=== PATIENT | male | born 1965 | race African-American/Black ===

== ENCOUNTER 2024-05-06 08:40 | Emergency (ER) | payer BC ==
[2024-05-06 08:47] VITALS: TEMP 98.3; BMI 23.0
[2024-05-06] MEDS ORDERED: ACETAMINOPHEN 325 MG TABLET (FP) ONE (09:19)
[2024-05-06] MEDS ORDERED: METHOCARBAMOL 500 MG TABLET ONE (09:19)
[2024-05-06] MEDS ORDERED: LIDOCAINE 5% TOPICAL PATCH ONE (09:19)
[2024-05-06 09:28] LABS: BASO % 0.8 % (0-2.0); EOS % 2.5 % (0-4.5); HEMOGLOBIN 13.1 GM/dL (11.7-16.9); LYMPH % 34.7 % (8-40); MCH 29.6 pg (25.7-33.7); MCHC 32.7 g/dl (32.0-35.9); MEAN CELL VOLUME 90.5 fl (80-96); MEAN PLT VOLUME 9.1 fl (7.5-11.1); MONO % 10.6 % (3.8-10.2); NEUT % 51.4 % (42.8-82.8); PLATELET COUNT 161 10^3/uL (134-434); RBC 4.42 M/mm3 (4.00-5.60); RDW 13.7 % (11.9-15.9); WHITE BLOOD COUNT 4.1 K/mm3 (4.0-10.0)
[2024-05-06] MEDS: LIDOCAINE 5% TOPICAL PATCH TP ONE (09:28)
[2024-05-06] MEDS: METHOCARBAMOL 500 MG TABLET PO ONE (09:28)
[2024-05-06] MEDS: ACETAMINOPHEN 500 MG TABLET (FP) PO ONE (09:28)
[2024-05-06 09:33] LABS: INR 0.96 (0.83-1.09)
[2024-05-06 09:36] LABS: ACTIVATED PTT 34.5 SECONDS (25.2-36.5)
[2024-05-06 10:01] LABS: POTASSIUM 4.2 mmol/L (3.5-5.1)
[2024-05-06 10:03] LABS: ALBUMIN 4.1 g/dl (3.4-5.0); BLOOD UREA NITROGEN 13.4 mg/dL (7-18); CALCIUM 9.5 mg/dL (8.5-10.1)
[2024-05-06 10:04] LABS: MAGNESIUM 2.3 mg/dL (1.8-2.4)
[2024-05-06 10:08] LABS: BILIRUBIN,TOTAL 0.5 mg/dL (0.2-1); TOT PROT 7.9 g/dl (6.4-8.2)
[2024-05-06 10:30] LABS: PH,URINE 7.5 (5.0-8.0); URINE APPEARANCE CLEAR; URINE BILIRUBIN NEGATIVE (NEGATIVE); URINE COLOR YELLOW; URINE GLUCOSE (UA) NEGATIVE (NEGATIVE); URINE KETONE NEGATIVE (NEGATIVE); URINE LEUK ESTERASE NEGATIVE (NEGATIVE); URINE NITRITE NEGATIVE (NEGATIVE); URINE PROTEIN NEGATIVE (NEGATIVE); URINE UROBILINOGEN 0.2 mg/dL (0.2-1.0)
[2024-05-06 12:06] LABS: HIV INTERPRETATION NEGATIVE (NEGATIVE)
[2024-05-06 13:46] VITALS: BP 155/97; PULSE 80; RESP 18
[2024-05-06] MEDS: KETOROLAC TROMETHAMINE 15 MG/ML VIAL IVPUSH ONE (14:01)
[2024-05-06] MEDS ORDERED: LIDOCAINE PATCH REMOVAL MC SCH (22:00)
== END 2024-05-06 14:03 | disposition home or self-care (01) ==
LOC: JER 08:40
DX: M54.32 Sciatica, left side (principal); R20.2 Paresthesia of skin; M25.552 Pain in left hip
CPT/HCPCS: 36415; 71046-TC-FY; 72131-TC; 72192-TC; 73552-TC-LT-FY; 80053; 81003; 83735; 84484; 85025; 85610; 85730; 86803; 86850; 86900; 86901; 87086; 87389; 93005; 93010; 99285-25